=== PATIENT | female | born 1995 | race African-American/Black ===

== ENCOUNTER 2021-03-22 01:44 | Emergency (ER) | payer BC ==
[2021-03-22 02:12] LABS: #Eosinphils 0.1 10x3/uL (0.0-0.5); #Monocytes 0.7 10x3/uL (0.0-1.1); #Neutrophils 5.8 10x3/uL (1.5-8.4); %Basophils 0.3 % (0.0-2.0); %Eosinophils 1.2 % (0.0-6.0); %Lymphocytes 26.3 % (18.0-47.0); %Monocytes 7.2 % (0.0-10.0); %Neutrophils 64.7 % (40.0-75.0); Hemoglobin 11.9 g/dL (12.0-15.5); Mean Corpuscular HGB CONC 33.6 g/dL (32.0-36.0); Mean Corpuscular Hemoglobin 32.2 pg (27.0-33.0); Mean Corpuscular Volume 95.7 fl (81.6-98.3); Mean Platelet Volume 10.3 fl (7.4-10.4); Platelet Count 260 10x3/uL (150-450); RBC Distribution Width 12.6 % (11.5-14.5)
[2021-03-22 02:22] LABS: ALT (SGPT) 10 U/L (8-55); AST (SGOT) 14 U/L (5-34); Alkaline Phosphatase 61 U/L (40-110); Anion Gap 16 mmol/L (10-20); BUN (Urea Nitrogen) 11 mg/dL (7.0-18.7); Bilirubin, Total 0.7 mg/dL (0.2-1.2); Calc. Creatinine Clearance 0 mL/min (70-130); Calcium 9.5 mg/dL (7.8-10.44); Carbon Dioxide 20 mmol/L (22-29); Chloride 105 mmol/L (98-107); Globulin 3.5 g/dL (2.4-3.5); Glucose 84 mg/dL (70-105); Potassium 3.6 mmol/L (3.5-5.1); Protein, Total 7.5 g/dL (6.0-8.3); Sodium 137 mmol/L (136-145)
[2021-03-22] MEDS ORDERED: Morphine 4 MG/ML VIAL ONE (02:52)
[2021-03-22] MEDS ORDERED: Ketorolac Tromethamine 30 MG/ML VIAL ONE (02:52)
[2021-03-22 02:58] LABS: Bilirubin Neg (Negative); Blood, Urine 250 (Negative); Clarity Cloudy (Clear); Glucose, Urine (Dipstick) Normal (Negative); Ketone, Urine 50 mg/dL (Negative); Leukocyte 500 (Negative); Nitrite Positive (Negative); Protein, Urine (Dipstick) 100 mg/dl (Neg-Trace); Specific Gravity, Urine 1.015 (1.002-1.036); Urobilinogen Normal mg/dL (Less than 2); pH, Urine 6.5 (5.0-9.0)
[2021-03-22 03:05] LABS: Bacteria/HPF 3+ HPF (None Seen); Squamous Epithelial 0-3 HPF (0-3); WBC/HPF Greater Than 50 HPF (0-3)
[2021-03-22 03:06] LABS: Mucous/LPF Rare LPF (<2+)
[2021-03-22] MEDS ORDERED: Azithromycin 250 MG TAB ONE (03:23)
[2021-03-22] MEDS ORDERED: Sterile Water 10 ML ONE ×3 (03:24)
[2021-03-22] MEDS ORDERED: cefTRIAXone\\ROCEPHIN 1 GM VIAL ONE (03:24)
== END 2021-03-22 04:36 | disposition home or self-care (01) ==
LOC: CSHERS 01:44
DX: N39.0 Urinary tract infection, site not specified (principal)
CPT/HCPCS: 76856; 80053; 81003; 81015; 84702; 85025; 96372; 96374; 96375; J0696; J1885; J2270

== ENCOUNTER 2021-12-27 12:46 | Emergency (ER) | payer BC, SELFPAY | END 2021-12-27 16:40 | disposition home or self-care (01) | LOC: CSHERS 12:46 | DX: J06.9 Acute upper respiratory infection, unspecified (principal); R06.02 Shortness of breath | CPT/HCPCS: 71045; 87804 ==

== ENCOUNTER 2022-10-05 12:54 | Emergency (ER) | payer SELFPAY | END 2022-10-05 14:37 | disposition short-term general hospital (02) | LOC: CSHERS 12:54 | DX: T76.21XA Adult sexual abuse, suspected, initial encounter (principal) | CPT/HCPCS: 99285 ==